=== PATIENT | female | born 1975 | race Caucasian/White ===

== ENCOUNTER 2016-11-15 23:00 | Inpatient (IN) | payer OTHER ==
[~2016-11-15] VITALS: Ht 165.1 cm; Wt 72.6 kg
--- NOTE | ~2016-11-15 | HP ---
Unit #: [id number] #: [id number] Patient: CHRISTIE ESTRADA [id number] [place] [address] [id number] MR#: [id number] NAME: CHRISTIE ESTRADA ROOM: P258 Age: 41 Sex: F Admission Date: 11/16/2016 : 1975 Attending Physician: Mekhi Duffy M.D. Admitting Physician: Mekhi Duffy M.D. Primary Care Physician: Haile Simon M.D. HISTORY AND PHYSICAL HISTORY OF PRESENT ILLNESS Christie is a 41 year old admitted to [address] [place] [address] because of her polysubstance abuse which includes IV heroin and methamphetamine. She has had other admissions to this facility for the same. PAST MEDICAL HISTORY 1. History of illicit substance abuse to include IV drugs. 2. High blood pressure. 3. Diabetes mellitus. 4. Hyperlipidemia. 5. Hepatitis C. 6. Morbid obesity. PAST SURGICAL HISTORY 1. Partial amputation right finger 2. x2 3. Appendectomy 4. PE tubes ALLERGIES No known drug allergies. SOCIAL HISTORY He smokes less than one pack per day. Denies alcohol. Admits to a long history of illicit substance abuse to include IV drugs. FAMILY HISTORY Medically noncontributory. REVIEW OF SYSTEMS CONSTITUTIONAL: No fever or chills. HEENT: Denies any sore throat, ear pain or runny nose. CARDIOVASCULAR: Denies chest pain, irregular heart rhythm or palpitations. CHEST: Denies shortness of breath or cough. No hemoptysis. GASTROINTESTINAL: Denies nausea, vomiting, diarrhea or chronic constipation. ENDOCRINE: Denies history of increased thirst or urination. No recent significant weight loss or gain. GENITOURINARY: Denies dysuria, frequency, or hematuria. SKIN: Denies any rashes. HEMATOLOGIC: Denies history of increased bleeding or bruising. MUSCULOSKELETAL: Denies any hot, swollen joints. No generalized muscle Unit #: [id number] #: [id number] Patient: CHRISTIE ESTRADA pain. NEUROLOGIC: Denies problems with vision or speech. No frequent, severe headaches. No numbness, tingling or weakness in any extremities. Denies loss of bladder or bowel control. CURRENT MEDICATIONS 1. Celexa 20 mg q day 2. Nicotine patch 14 mg q day 3. Milk of Magnesia p.r.n. 4. Maalox p.r.n. 5. Tylenol p.r.n. PHYSICAL EXAMINATION GENERAL: Alert, morbidly obese, in no apparent distress. VITAL SIGNS: Blood pressure 134/94, heart rate 70, respirations 16, temperature 98.6. WEIGHT: 160 pounds. HEIGHT: 5'5". SKIN: Warm and dry without rash or lesion. HEENT: Normocephalic. TMs not viewed. Oral and nasal passages clear. Conjunctivae clear. Pupils equal, round and reactive to light and accommodation. Extraocular movements intact. NECK: Supple without lymphadenopathy or thyromegaly. HEART: Regular rate and rhythm without murmur. LUNGS: Clear. ABDOMEN: Soft, nontender. : Not done. EXTREMITIES: No evidence of cyanosis, clubbing or edema. Moves all extremities without focal deficit. NEUROLOGICAL: Grossly within normal limits. Cranial Nerves: II: Visual diaz are intact. III, IV AND : Extraocular movements are intact. Pupils are equal, round and reactive to light. V: Facial sensation is grossly normal. VII: Facial movements and expression are normal. VIII: Auditory acuity grossly intact. IX, X: Uvula is midline. Phonation is normal. XI: Patient shrugs shoulders and turns head normally. XII: Tongue protrudes in the midline. Sensory and Motor Function: Sensory and motor sensation is grossly normal. Motor: moves all extremities well. Coordination: Gait is normal. Deep Tendon Reflexes: Intact. IMPRESSION Psychiatric admission RECOMMENDATIONS PSYCHIATRIC: Per psychiatrist. MEDICAL: I see no contraindications to participating in facility's activities. MEDICAL PROGNOSIS Good. MEDICAL CONDITION Stable. Unit #: [id number] #: [id number] Patient: CHRISTIE ESTRADA Dictated by... Anastasiia Madsen P.A.-C. for Marilin Corbin/fartun TD: 11/16/2016 22:53 JOB #: [id number] HISTORY AND PHYSICAL Page 1 of 1 X Anastasiia Madsen HISTORY AND PHYSICAL
--- NOTE | ~2016-11-15 | PA ---
Unit #: [id number] #: [id number] Patient: CHRISTIE ESTRADA [id number] [facility] [address] [place] [address] [id number] I MR#: [id number] NAME: CHRISTIE ESTRADA ROOM: P258 Age: 41 Sex: F Admission Date: 11/16/2016 : 1975 Date of Assessment: 11/16/2016 Attending Physician: Mekhi Duffy M.D. Admitting Physician: Mekhi Duffy M.D. Primary Care Physician: Haile Simon M.D. PSYCHIATRIC ASSESSMENT INFORMANT(S) Patient, reliable. [facility] records, reliable. CHIEF COMPLAINT Suicidal ideation. HISTORY OF PRESENT ILLNESS The patient is a 41-year-old woman who has increasing difficulties with depression, hopelessness, and has been thinking about overdosing on heroin. [facility] after coming [facility] court and was unable to contract for safety. She was admitted for stabilization. PAST PSYCHIATRIC HISTORY The patient reports a history of inpatient treatment at this facility and [place] as well as outpatient care through [facility]. At her last admission, she was discharged on Wellbutrin, Celexa, and trazodone. FAMILY PSYCHIATRIC HISTORY No reported family history of mental illness. SOCIAL HISTORY The patient is single and has been using occasional heroin and amphetamines. She was recently released from incarceration and has minimal psychosocial support. PAST MEDICAL HISTORY The patient has a history of hypertension and diabetes. MEDICATIONS Please see MAR. ALLERGIES No known medication allergies. SUBSTANCE ABUSE HISTORY As noted above. MENTAL STATUS EXAMINATION Christie presented as a mildly disheveled woman who appeared her stated age. She was cooperative with the examination. Her speech was spontaneous and easily understood. Her musculoskeletal examination was calm. Her mood was depressed with a congruent affect. She was alert and fully oriented. Unit #: [id number] #: [id number] Patient: CHRISTIE ESTRADA Her memory and concentration were fair. Her thought processes were goal-directed with no active psychosis. She reported suicidal ideation and could not contract for safety outside of the hospital. Insight and judgment were fair. Fund of knowledge and abstraction were fair. ASSETS AND LIABILITIES The patient comes voluntarily for treatment and knows local resources. Liabilities: Include lack of current treatment, recent incarceration, and lack of social support. ADMITTING DIAGNOSES AXIS I: Major depressive disorder, F33.2 Opiate abuse. Amphetamine abuse. AXIS II: No diagnosis. AXIS III: Diabetes. Hypertension. PSYCHIATRIC PLAN/TREATMENT GOALS/DISCHARGE PLANNING The patient was admitted and placed on suicide precautions. Celexa 20 mg daily will be initiated for treatment of depression, and we will obtain a medical consultation for treatment of hypertension and diabetes. She will enroll in dual diagnosis groups and activities, and a physical examination and laboratory studies will be ordered and reviewed. Treatment goals are resolution of SI, improvement in insight, improvement in coping skills. Discharge planning: Follow up with community mental health. ESTIMATED LENGTH OF STAY 5 days. Dictated by... Mekhi Duffy M.D. VLADIMIR/danya TD: 11/18/2016 13:15 JOB #: [id number] PSYCHIATRIC ASSESSMENT Page 1 of 1 X Mekhi Duffy MD X PSYCHIATRIC ASSESSMENT
--- NOTE | ~2016-11-15 | CO ---
Unit #: [id number] #: [id number] Patient: CHRISTIE ESTRADA [id number] [place] [address] [id number] I MR#: [id number] NAME: CHRISTIE ESTRADA ROOM: P258 Age: 41 Sex: F Admission Date: 11/16/2016 : 1975 Attending Physician: Mekhi Duffy M.D. Primary Care Physician: Haile Siomn M.D. Consultation Date: 11/16/2016 CONSULTATION REPORT SUBJECTIVE Christie is a 41-year-old with history of diabetes. She is noncompliant with any kind of medication. We have been asked to review her blood sugars and give recommendations and treat. OBJECTIVE GENERAL: Alert, well nourished, in no apparent distress. VITAL SIGNS: Blood pressure 130/92, heart rate 80, respirations 16, temperature 98.6, weight 160, height 5 feet 5 inches. CARDIOVASCULAR: Rate and rhythm is regular. CHEST: Lungs clear. EXTREMITIES: No edema. DIAGNOSTIC STUDIES LABORATORY RESULTS: Blood sugar on admission 262. Accu-Chek 284. ASSESSMENT Diabetes mellitus, poor control. PLAN Start Glucophage 500 mg one p.o. b.i.d. and Levemir 10 units q.h.s. She will be provided a no concentrated sweet diet and medications will be adjusted accordingly. Dictated by... Anastasiia Madsen P.A.-C. for Marilin Corbin/cholo TD: 11/21/2016 22:45 JOB #: [id number] Unit #: [id number] #: [id number] Patient: CHRISTIE ESTRADA CONSULTATION REPORT Page 1 of 1 X Anastasiia Madsen CONSULTATION REPORT
[~2016-11-15 23:00] MED LIST: AUGMENTIN1 TAB.SR1 PO; AVANDIA PO; BACTRIM DS TABL1 TA1 PO; BACTRIM DS TABL1 TAB PO; CIPRO PO; CIPRODEX OTIC7.5 ML OT; IBUPROFEN800 MG PO; KEFLEX PO; KEFLEX500 MG PO; LISINOPRIL PO; METFORMIN HCL500 M1 PO; METFORMIN PO; MYCOSTATIN PO; NORMODYNE; PRENATAL VITAMI1 TA3 PO; PRINIVIL10 MG PO; VICODIN 5/1 TAB 5/50 PO; VICODIN 5/500 T1 TAB PO; ZITHROMAX PO; ZYRTEC PO
[2016-11-16 09:43] LABS: BASOPHIL% 0.7 % (0-2.5); EOSINOPHIL# 0.3 X10e3 (0-0.7); EOSINOPHIL% 6.4 % (0.0-7.0); HEMATOCRIT 34.5 % (35.0-45.0); HEMOGLOBIN 11.7 gm/dL (12.0-16.0); LYMPHOCYTE# 1.6 X10e3 (1.0-3.5); MEAN CELL VOLUME 86.8 FL (83-96); MEAN CORPUSCULAR HEMOGLOBIN 29.5 PG (28-34); MEAN PLATELET VOLUME 8.3 FL (6.5-11.5); MONOCYTE# 0.6 X10e3 (0-1.0); MONOCYTE% 11.9 % (3.0-12.0); NEUTROPHIL# 2.5 X10e3 (1.5-7.1); PLATELET COUNT 183 X10e3 (140-420); RED BLOOD COUNT 3.97 X10e (3.90-5.30); RED CELL DISTRIBUTION WIDTH 13.5 % (11.0-15.5)
[2016-11-16 10:12] LABS: ALBUMIN SERUM 3.5 g/dL (3.5-5.0); BILIRUBIN,TOTAL 0.4 mg/dL (0.2-2.0); BUN/CREATININE RATIO 18.75; CALCIUM SERUM 8.8 mg/dL (8.4-10.2); CREATININE SERUM 0.8 mg/dL (0.6-1.4); POTASSIUM 3.8 mmol/L (3.5-5.1); PROTEIN TOTAL SERUM 6.3 g/dL (6.0-8.3)
[2016-11-16 12:27] LABS: DIFF IND NO
[2016-11-17 09:57] LABS: URINE APPEARANCE CLOUDY; URINE BILIRUBIN NEG (NEG); URINE BLOOD TRACE (NEG); URINE COLOR YELLOW; URINE GLUCOSE >1000 MG/DL (NEG); URINE KETONE NEG (NEG); URINE LEUKOCYTE ESTERASE 2+ (NEG); URINE NITRATE NEG (NEG); URINE PH 5.5 (5-8); URINE PROTEIN NEG (NEG); URINE SPECIFIC GRAVITY 1.032 (1.003-1.035); URINE UROBILINOGEN 0.2 MG/DL (NEG)
[2016-11-17 10:02] LABS: URINE BACTERIA AUWI 2+ (NEGATIVE); URINE SQUAMOUS EPITHELIAL CELL MOD /[HPF]; UWBCS1 AUWI 100-200 (0-5)
[2016-11-17 10:18] LABS: URINE CRYSTALS CALCIUM OXALATE /[HPF]; URINE YEAST PRESENT
[2016-11-17 10:40] LABS: AMPHETAMINE POS (NEG); BARBITURATES NEG (NEG); BENZODIAZEPINES NEG (NEG); COCAINE NEG (NEG); MARIJUANA NEG (NEG); OPIATES NEG (NEG); TRICYCLIC ANTIDEPRESSANTS NEG (NEG); U METHADONE NEG (NEG)
== END 2016-11-21 14:00 | disposition home or self-care (01) | DRG 881 ==
LOC: P2L 11-16 02:29
PROVIDERS: Psychiatry & Neurology Psychiatry
DX: F32.9 Major depressive disorder, single episode, unspecified (principal); E11.9 Type 2 diabetes mellitus without complications; R45.851 Suicidal ideations; F11.10 Opioid abuse, uncomplicated; F15.10 Other stimulant abuse, uncomplicated; I10 Essential (primary) hypertension; Z86.19 Personal history of other infectious and parasitic diseases; E78.5 Hyperlipidemia, unspecified; F17.210 Nicotine dependence, cigarettes, uncomplicated
CPT/HCPCS: 80053; 80307; 81003; 82947; 84703; 85025